=== PATIENT | male | born 1940 | race Caucasian/White ===

== ENCOUNTER → 2018-03-08 | Outpatient (CLI) | payer MEDICARE ==
[~2018-03-08] MED LIST: CARD240C6 PO; CARD4TAB2 PO; SIMV20 PO; ZOCO20TA PO
[2018-03-08 09:12] LABS: HEMATOCRIT 39.8 % (39.0-51.0); HEMOGLOBIN 13.7 GM/DL (13.0-17.0); MEAN CELL VOLUME 91.3 FL (80.0-100.0); MEAN CORPUSCULAR HEMOGLOBIN 31.4 PG (27.0-34.0); MEAN CORPUSCULAR HGB CONC 34.4 % (32.0-36.0); MEAN PLATELET VOLUME 8.1 FL (7.0-11.0); PLATELET COUNT 252 TH/MM3 (150-450); RED BLOOD COUNT 4.36 MIL/MM3 (4.50-5.90); RED CELL DISTRIBUTION WIDTH 12.6 % (11.6-17.2)
[2018-03-08 09:19] LABS: BILIRUBIN, URINE NEG (NEG); BLOOD, URINE SMALL (NEG); GLUCOSE,URINE NEG (NEG); KETONE, URINE NEG (NEG); MUCUS URINE FEW /lpf (OCC); NITRITE,URINE NEG (NEG); URINE COLOR YELLOW (YELLW/STRAW); URINE LEUKOCYTE ESTERASE NEG (NEG)
[2018-03-08 09:22] LABS: INTERNATIONAL NORMALIZED RATIO 1.1 RATIO; PROTHROMBIN TIME - PATIENT 10.9 SEC (9.8-11.6)
[2018-03-08 09:55] LABS: ALT (GPT) 19 U/L (12-78); AST (GOT) 11 U/L (15-37); BICARBONATE 24.8 MEQ/L (21.0-32.0); BLOOD UREA NITROGEN 13 MG/DL (7-18); CALCIUM 8.9 MG/DL (8.5-10.1); CHLORIDE 107 MEQ/L (98-107); CREATININE 0.89 MG/DL (0.60-1.30); GLOMERULAR FILTRATION RATE 83 ML/MIN (>89); GLUCOSE,FASTING 115 MG/DL (74-99); SODIUM (NA) 142 MEQ/L (136-145)
[2018-03-08 09:58] LABS: ALKALINE PHOSPHATASE 76 U/L (45-117); TOTAL BILIRUBIN ADULT 0.6 MG/DL (0.2-1.0); TOTAL PROTEIN 7.2 GM/DL (6.4-8.2)
--- NOTE | 2018-03-09 14:15 | EKG ---
Date Performed: 03/08/2018 Time Performed: 09:12:36 PTAGE: 78 years EKG: SINUS BRADYCARDIA BORDERLINE ECG NO PREVIOUS TRACING DOCTOR: Geoffrey Soares Interpretating Date/Time 03/09/2018 14:13:31
== END ==
LOC: CPRE 08:28
PROVIDERS: ATTEND Surgery
DX: Z01.812 Encounter for preprocedural laboratory examination (principal); Z01.810 Encounter for preprocedural cardiovascular examination; M79.609 Pain in unspecified limb; R00.1 Bradycardia, unspecified
CPT/HCPCS: 36415; 80053; 81001; 85027; 85610; 85730; 93005

== ENCOUNTER 2018-03-14 05:44 | Inpatient (IN) | payer MEDICARE ==
--- NOTE | 2018-03-09 15:49 | MH ---
cc: Padmini Reeves MD DATE OF ADMISSION: 03/14/2018 ADMITTING DIAGNOSIS: Osteoarthritic degeneration of left hip, now being admitted for left total hip arthroplasty. HISTORY OF PRESENT ILLNESS: This pleasant 78-year-old male is being admitted today for left total hip arthroplasty due to severe painful osteoarthritic degeneration, left hip. OTHER PAST HISTORY: He recently underwent bilateral total knees as well. He has a history of hyperlipidemia, essential primary hypertension. CURRENT MEDICATIONS: Diazepam 5 mg tablet, doxazosin, diltiazem, simvastatin, Prepopik. PREVIOUS SURGERIES: The total knees. REVIEW OF SYSTEMS: Noncontributory. FAMILY HISTORY: Noncontributory. SOCIAL HISTORY: Does not smoke or drink. ALLERGIES: HE IS ALLERGIC TO GEMFIBROZIL AND PENICILLIN. PHYSICAL EXAMINATION: GENERAL: We find a 78-year-old male, well developed, well nourished, oriented x 3, complaining of pain in his left hip. VITAL SIGNS: Blood pressure 130/80, pulse 60 and regular, respirations 16, temperature 98, pulse oximetry 98% on room air. HEENT: Eyes PERRLA, EOMI. Ears, nose, mouth clear. NECK: Supple. LUNGS: Clear. HEART: Regular rate. ABDOMEN: Soft, positive bowel sounds, nontender. EXTREMITIES: Reveal his left hip to have decreased range of motion with crepitance on range of motion. Neurovascularly intact to his toes. IMPRESSION: Severe painful osteoarthritic degeneration, left hip. PLAN: Admission for left total hip arthroplasty today. The patient given prescription for postoperative pain and anticoagulation control in the office. Plans on going home with home health care after surgical stay in the hospital. MD MARIANA Card/MARCELL , 03:26 PM , 03:48 PM
[~2018-03-14] VITALS: Ht 180.3 cm; Wt 103.6 kg
[~2018-03-14 05:44] MED LIST changes: -SIMV20 PO
[2018-03-14] MEDS ORDERED: CLINDAMYCIN PHOS 900 MG/6 ML VIAL ONE (06:16)
[2018-03-14] MEDS ORDERED: VANCOMYCIN 1 GM/200 ML INJ 200 ML IV ONE (06:16)
[2018-03-14] MEDS ORDERED: SODIUM CHLORIDE 0.9% INJ 100 ML ONE (06:17)
[2018-03-14] MEDS ORDERED: GENTAMICIN SULFATE 80 MG/2 ML VIAL ONE (06:20)
[2018-03-14] MEDS ORDERED: CARD4TAB2 PO (06:24)
[2018-03-14] MEDS ORDERED: ASPI-516 CHEW (06:24)
[2018-03-14] MEDS ORDERED: IBUP-232 PO (06:24)
[2018-03-14] MEDS ORDERED: CHOL100025 CHEW (06:24)
[2018-03-14] MEDS ORDERED: METOPROLOL TARTRATE 25 MG TAB PO PRN (06:30)
[2018-03-14] MEDS ORDERED: CHLORHEXIDINE GLUCONATE 2 % 1 PACK (2 CLOTHS) TOPICAL PRN (06:30)
[2018-03-14] MEDS ORDERED: VANCOMYCIN 1 GM/200 ML INJ 200 ML IV SCH (06:30)
[2018-03-14] MEDS ORDERED: POVIDONE IODINE 5% (ANTISEPSIS KIT) 4 APPLICATIONS EACH NARE PRN (06:30)
[2018-03-14] MEDS ORDERED: CHLORHEXIDINE GLUCONATE 4% SOLN 120 ML BTL TOPICAL SCH (06:30)
[2018-03-14] MEDS ORDERED: SODIUM CHLORID 0.9% 500 ML IV PRN (06:30)
[2018-03-14] MEDS ORDERED: LACTATED RINGER'S 1000 ML IV PRN (06:30)
[2018-03-14] MEDS ORDERED: CLINDAMYCIN 900 MG/NS 100 ML IV SCH ×2 (06:30)
[2018-03-14] MEDS ORDERED: BUPIVACAINE LIPOSO PF 1.3% INJ 20 ML, BUPIVACAINE PF 0.25% INJ 20 ML in SODIUM CHLORIDE... P-ARTICULR SCH (07:30)
[2018-03-14] MEDS ORDERED: SODIUM CHLORIDE 0.9% IV SCH ×2 (07:30→10:30)
[2018-03-14] MEDS ORDERED: TRANEXAMIC ACID IV SCH ×2 (07:30→10:30)
[2018-03-14] MEDS ORDERED: Post-op Orders (for Pharmacy) XX ONE (07:45)
[2018-03-14] MEDS ORDERED: NALOXONE HCL 0.4 MG/ML AMP IV PUSH PRN (07:45)
[2018-03-14] MEDS ORDERED: ONDANSETRON HCL 4 MG/2 ML VIAL IVP PRN (07:45)
[2018-03-14] MEDS ORDERED: MORPHINE SULFATE 8 MG/ML INJ IV PUSH PRN (07:45)
[2018-03-14] MEDS ORDERED: BISACODYL 10 MG SUPP RECTAL PRN (07:45)
[2018-03-14] MEDS ORDERED: TRANEXAMIC ACID INJ 0 MG in SODIUM CHLORIDE 0.9% INJ 100 ML IV SCH (07:45)
[2018-03-14] MEDS ORDERED: TEMAZEPAM 15 MG CAP PO PRN (07:45)
[2018-03-14] MEDS ORDERED: NURSING INFORMATION XX PRN (07:45)
[2018-03-14] MEDS ORDERED: ACETAMINOPHEN 325 MG TAB PO PRN (07:45)
[2018-03-14] MEDS ORDERED: ACETAMINOPHEN/HYDROcodone 325 MG/7.5 MG TAB PO PRN (07:45)
[2018-03-14] MEDS ORDERED: MAGNESIUM HYDROXIDE SUSP 30 ML CUP PO PRN (07:45)
--- NOTE | 2018-03-14 07:49 | HHI.FF ---
Face to Face Verification Diagnosis: (1) Status post total replacement of left hip Physical Therapy Gait training Hip: Total hip, Protocol: Left, Posterior hip precautions, Abduction pillow while in bed, Progress to weight bearing Canvas Knee Splint: When in bed & 2 pillows btw thighs Nursing RN: 3 days/week x 2 weeks Dressing Changes: Do not change dressing I have seen patient Ady Childs on 03/14/18. My clinical findings support the need for the requested home health care services because: Limited ability to care for self High risk of falls I certify that my clinical findings support that this patient is homebound because: Unsteady gait/balance Padmini Reeves MD Mar 14, 2018 07:49
[2018-03-14] MEDS ORDERED: ADJUSTABLE COMM1 MIS (07:50)
[2018-03-14] MEDS ORDERED: WALKER WHEELS/F1 MIS (07:50)
[2018-03-14] MEDS ORDERED: KETAMINE HCL 50 MG/5 ML SYRINGE ONE (07:56)
[2018-03-14] MEDS ORDERED: ACETAMINOPHEN 1000 MG/100 ML 100 ML IV ONE (07:56)
--- NOTE | 2018-03-14 08:03 | RADRPT ---
EXAM DATE: 03/14/2018 7:53 AM EDT AGE/SEX: 78 years / Male INDICATIONS: Left hip pain. Pre-op for left hip surgery. CLINICAL DATA: This is the patient's initial encounter. Patient reports that signs and symptoms have been present for 1 day and indicates a pain score of 7/10. MEDICAL/SURGICAL HISTORY: None. None. COMPARISON: No prior exams available for comparison. FINDINGS: Severe degenerative change with significant joint space narrowing and prominent osteophyte formation and subchondral cysts. Osseous structures appear intact. Soft tissues are unremarkable. CONCLUSION: 1. Severe degenerative osteoarthritis of the left hip. Electronically signed by: Zackery Gooden MD 03/14/2018 8:02 AM EDT
[2018-03-14] MEDS: CHOLECALCIFEROL (VIT D3) 1000 UNIT TAB PO SCH (09:00)
[2018-03-14] MEDS: DILTIAZEM-CD 240 MG CAP ER PO SCH (09:00)
[2018-03-14] MEDS ORDERED: DO NOT ADM ANY ANTICOAGULANT DRUGS PRN (10:17)
--- NOTE | 2018-03-14 10:20 | MP ---
cc: Padmini Reeves MD DATE OF OPERATION: 03/14/2018 PREOPERATIVE DIAGNOSIS: Osteoarthritic degeneration, left hip. POSTOPERATIVE DIAGNOSIS: Osteoarthritic degeneration, left hip. SURGERY PERFORMED: Left total hip arthroplasty using Aesculap component size 17 standard stem with a short neck, 36 mm head, size 58 cup with one 32 mm screw. No cement utilized. SURGEON: Padmini Reeves MD TOUR COORDINATOR: LELAND Wray ANESTHESIA: General intubation. PROCEDURE: The patient was brought to the Operating Room, where after successful induction of spinal anesthesia was placed on the operating room table in the right lateral decubitus position. The left hip, thigh and leg were prepped and draped in the usual manner. A posterolateral approach was then utilized by making an incision over the proximal portion of the femur lateral aspect, carried across the greater trochanter, carried posterior in a curved incision toward the buttock. The incision was carried down through the subcutaneous tissue, through the fibers of the tensor fascia duran and gluteus rojas to expose the greater trochanteric bursa. This was then removed by sharp and blunt dissection. The hip was then internally rotated to expose the insertions of the short external rotators of the hip and were incised at their insertion into the greater trochanter and reflected posterior to protect the sciatic nerve. These were held with a Charnley retractor to better visualize the hip joint. The capsule was identified and removed by sharp dissection. The hip was then dislocated by internal rotation and flexion of the hip. The femoral calcar was then measured using the trial components for the appropriate length cut of the neck using an oscillating saw. After the cut was made the head was removed. The acetabulum was then approached and measured, the acetabulum reamed with the acetabular reamers. Next, the femoral calcar was approached by first inserting a canal finder followed by rigid reamers, followed by a cookie-cutter to the appropriate size, in this case being a #15. The broach was left in place and a planer used to plane the calcar to a smooth finish. The broach was then removed. The trial components were then inserted into place, the hip reduced, found to track smoothly with no evidence of subluxation or dislocation. All trial components were removed. The wound was irrigated copiously with antibiotic solution and Water Pik. The actual components were then inserted and impacted into place using Aesculap component size 17 standard stem with a short neck, 36 mm head, size 58 cup with one 32 mm screw. No cement utilized. The hip was reduced, found to track smoothly with no evidence of subluxation or dislocation. The wound was irrigated copiously with antibiotic solution, meticulous hemostasis achieved. No drain utilized. The sciatic nerve identified and protected throughout the procedure. A 60 mL of mixture of Exparel with 0.25% Marcaine plain and normal saline inserted around the anterior hip joint for extra pain control. The capsule approximated with interrupted #1 Vicryl suture. The deep fascia approximated with running #2 Quill. Subcutaneous tissue approximated using interrupted and running 2-0 and 3-0 Monocryl suture and Prineo dressing, abduction pillow, splint and knee immobilizer. ESTIMATED BLOOD LOSS: 300 mL. Sponge and suture counts correct. The patient tolerated the procedure well and left the operating room in satisfactory condition and LELAND Wray, was present during the entire procedure to include patient positioning and the procedure. The medical necessity and nurse practitioner as a dietitian assistant was indicated in this case due to the surgical complexity of the case itself. During the surgical case, the surgical asst was working the back table while my surgical asst, LELAND was directly assisting me. J. Skinny Reeves MD JRRuddy/GLENN , 10:01 AM , 10:19 AM
--- NOTE | 2018-03-14 10:22 | HHI.PR ---
Immediate Post Op Note Procedure Date: Mar 14, 2018 Pre Op Diagnosis: Osteoarthritic degeneration of left hip Post Op Diagnosis: Osteoarthritic degeneration of left hip Surgeon: Laquita Reeves MD Rail Technician(s): Erica HA Procedure: Left Total Hip Arthroplasty Complications: none Specimen(s) removed: none Estimated blood loss: 200 cc Anesthesia: General Drains: None IVF Urinary Output (mLs): 0 (no holt) Tourniquet time (min at mmHg) none Patient to: PACU Patient Condition: Good Implant/Devices: SEE IMPLANT LOG (if applicable) Date/Time of Procedure: SEE SURGICAL CARE RECORD Erica Melgoza Mar 14, 2018 10:21
[2018-03-14] MEDS ORDERED: MORPHINE SULFATE 4 MG/ML INJ ONE (10:33)
[2018-03-14] MEDS ORDERED: *morphine SULFATE 4 MG/ML PERIprocedure ONLY ONE ×3 (10:48→11:04)
[2018-03-14] MEDS: LACTATED RINGER'S 1000 ML INJ 1,000 ML IV SCH ×2 (10:56→20:30)
--- NOTE | 2018-03-14 11:19 | RADRPT ---
EXAM DATE: 03/14/2018 11:12 AM EDT AGE/SEX: 78 years / Male INDICATIONS: Post-op left hip replacement. CLINICAL DATA: This is the patient's subsequent encounter. Patient reports that signs and symptoms h ave been present for 1 day and indicates a pain score of 10/10. MEDICAL/SURGICAL HISTORY: Hypertension. None. COMPARISON: C, HIP LEFT (AP&LAT 2/3VWS) WO AP PELVIS, 03/14/2018. . FINDINGS: Left total hip arthroplasty is present. Hardware is intact. Alignment is anatomic. Adjacent pelvis is unremarkable. CONCLUSION: Satisfactory appearance post left RAQUEL Electronically signed by: Daniel Murray MD 03/14/2018 11:18 AM EDT
[2018-03-14] MEDS ORDERED: ROCURONIUM INJ 50 MG/5 ML SYRINGE IV PUSH ONE (12:00)
[2018-03-14] MEDS ORDERED: PROPOFOL 200 MG/20 ML AMP IV ONE (12:00)
[2018-03-14] MEDS ORDERED: LACTATED RINGER'S 1000 ML INJ 1,000 ML IV ONE (12:00)
[2018-03-14] MEDS ORDERED: DEXAMETHASONE SOD PHOS 4 MG/ML VIAL IV ONE (12:00)
[2018-03-14] MEDS ORDERED: NEOSTIGMINE 5 MG/5 ML SYRINGE IV PUSH ONE (12:00)
[2018-03-14] MEDS ORDERED: ONDANSETRON HCL 4 MG/2 ML VIAL IV PUSH ONE (12:00)
[2018-03-14] MEDS ORDERED: LIDOCAINE HCL 1% PF 5 ML SYRINGE OTHER ONE (12:00)
[2018-03-14] MEDS ORDERED: GLYCOPYRROLATE 1 MG/5 ML SYRINGE IV PUSH ONE (12:00)
[2018-03-14] MEDS: CLINDAMYCIN INJ 900 MG in SODIUM CHLORIDE 0.9% INJ 100 ML IV SCH ×2 (13:00→19:00)
[2018-03-14] MEDS: ACETAMINOPHEN/HYDROcodone 325 MG/7.5 MG TAB PO PRN (17:07)
[2018-03-14 17:30] VITALS: BP 169/83; PULSE 65; RESP 14; TEMP 97.4; O2SAT 94
[2018-03-14 20:20] VITALS: BP 151/81; PULSE 79; RESP 18; TEMP 98.6; O2SAT 97
[2018-03-14] MEDS ORDERED: DOXAZOSIN MESYLATE 4 MG TAB PO SCH (21:00)
[2018-03-14] MEDS ORDERED: ASPIRIN 81 MG CHEW TAB CHEW SCH (21:00)
[2018-03-14] MEDS ORDERED: PRAVASTATIN SOD 40 MG TAB PO SCH (21:00)
[2018-03-14 23:01] VITALS: BP 155/79; PULSE 81; RESP 18; TEMP 98.5; O2SAT 96
[2018-03-15] MEDS: CLINDAMYCIN INJ 900 MG in SODIUM CHLORIDE 0.9% INJ 100 ML IV SCH ×2 (01:01→06:35)
[2018-03-15 05:00] VITALS: BP 149/78; PULSE 77; RESP 18; TEMP 97.3; O2SAT 96
[2018-03-15 07:02] LABS: HEMATOCRIT 34.3 % (39.0-51.0); HEMOGLOBIN 11.9 GM/DL (13.0-17.0)
[2018-03-15 08:00] VITALS: BP 137/66; PULSE 73; RESP 18; TEMP 97.9; O2SAT 98
[2018-03-15 08:58] VITALS: O2SAT 96
[2018-03-15] MEDS: LACTATED RINGER'S 1000 ML INJ 1,000 ML IV SCH (09:00)
[2018-03-15] MEDS ORDERED: APIXABAN 2.5 MG TABLET PO SCH (09:00)
[2018-03-15] MEDS: DILTIAZEM-CD 240 MG CAP ER PO SCH (09:52)
[2018-03-15] MEDS: CHOLECALCIFEROL (VIT D3) 1000 UNIT TAB PO SCH (09:52)
--- NOTE | 2018-03-15 11:45 | PD.ORT.PN ---
Subjective Subjective Remarks Patient comfortable without complaints. Objective Vitals Vital Signs Date Time Temp Pulse Resp B/P (MAP) Pulse Ox O2 Delivery O2 Flow Rate FiO2 03/15/18 08:58 96 21 03/15/18 08:00 97.9 73 18 137/66 (89) 98 03/15/18 05:00 97.3 77 18 149/78 (101) 96 03/14/18 23:01 98.5 81 18 155/79 (104) 96 03/14/18 21:29 21 03/14/18 20:20 98.6 79 18 151/81 (104) 97 03/14/18 18:10 18 03/14/18 17:30 97.4 65 14 169/83 (111) 94 03/14/18 15:28 98.1 58 16 130/75 (93) 94 Room Air 03/14/18 14:45 62 15 145/73 (97) 95 Room Air 03/14/18 13:45 61 15 127/84 (98) 100 Room Air 03/14/18 13:15 59 15 123/63 (83) 100 Room Air 03/14/18 12:45 62 15 143/76 (98) 100 Nasal Cannula 3 03/14/18 12:15 56 15 132/66 (88) 100 Nasal Cannula 3 03/14/18 11:45 51 15 128/61 (83) 97 Nasal Cannula 3 I/O 03/14/18 03/14/18 03/14/18 03/15/18 03/15/18 03/15/18 07:00 15:00 23:00 07:00 15:00 23:00 Intake Total 1400 ml 850 ml 480 ml Output Total 3300 ml 525 ml 600 ml Balance -1900 ml 325 ml -120 ml Intake Oral 425 ml 480 ml IV Total 1400 ml 425 ml Output Urine Total 525 ml 600 ml Estimated Blood Loss 300 ml Other 3000 ml # Voids 3 # Bowel Movements 1 0 Result Diagram: 03/15/18 0612 Imaging Last 48 hours Impressions Hip X-Ray 03/14/18 0742 Signed Impressions: CONCLUSION: Satisfactory appearance post left RAQUEL Hip X-Ray 03/14/18 0000 Signed Impressions: CONCLUSION: 1. Severe degenerative osteoarthritis of the left hip. Objective Remarks Sitting up in chair. NV intact to toes. No calf tenderness. Assessment & Plan Ortho Post Op Day #: 1 Problem List: Assessment and Plan Home today after class. Padmini Reeves MD Mar 15, 2018 11:45
[2018-03-15 12:00] VITALS: BP 140/78; PULSE 90; RESP 18; TEMP 97.8; O2SAT 97
[2018-03-15] MEDS: ACETAMINOPHEN/HYDROcodone 325 MG/7.5 MG TAB PO PRN (12:16)
[2018-03-15] MEDS ORDERED: MULTIVITAMINS/MINERALS THERAPEUTIC TAB PO SCH (21:00)
[2018-03-15] MEDS ORDERED: DOCUSATE SODIUM 100 MG CAP PO SCH (21:00)
== END 2018-03-15 15:11 | disposition home health service (06) | DRG 470 ==
LOC: HSDI 05:44 → N06B 15:56
PROVIDERS: ADMIT Surgery; ATTEND Surgery
PROC: 0SRB0JA Replacement of Left Hip Joint with Synthetic Substitute, Uncemented, Open Approach (ICD-10-PCS; principal; 2018-03-14 07:53)
DX: M16.12 Unilateral primary osteoarthritis, left hip (principal); I10 Essential (primary) hypertension; E78.5 Hyperlipidemia, unspecified; Z88.0 Allergy status to penicillin
CPT/HCPCS: 73501; 73502; 85014; 85018; 86850; 86900; 86901; 94150; C1776; C9290; J0131; J1100; J1580; J2270; J2405; J2710; J3010; J3370; J7120; L1830